=== PATIENT | male | born 1950 | race Caucasian/White ===

== ENCOUNTER 2024-05-22 15:36 | Emergency (ER) | payer MEDICARE, OTHER ==
[2024-05-22] MEDS: Acetaminophen 500 MG Tab PO ONE (16:01)
[2024-05-22] MEDS: Ketorolac 15 MG/ML SDV IVPUSH ONE (16:01)
[2024-05-22] MEDS: Sodium Chloride 0.9% 1,000 ML IV ONE (16:02)
[2024-05-22 16:12] LABS: BASOPHILS PERCENT AUTO 0.1 % (0.2-1.2); HEMATOCRIT 36.5 % (40.0-52.0); HEMOGLOBIN 13.4 g/dL (14.0-18.0); IMMATURE GRAN ABSOLUTE AUTO 0.03 x10^3/uL (0.00-0.07); LYMPHOCYTES ABSOLUTE AUTO 0.4 x10^3/uL (1.0-4.8); LYMPHOCYTES PERCENT AUTO 3.8 % (25.0-50.0); MEAN CORPUSCULAR HEMOGLOBIN 34.8 pg (26.0-32.0); MEAN CORPUSCULAR HGB CONC 36.7 g/dL (32.0-36.0); MEAN CORPUSCULAR VOLUME 94.8 fL (78.0-93.0); MONOCYTES ABSOLUTE AUTO 0.3 x10^3/uL (0.0-0.8); NEUTROPHILS ABSOLUTE AUTO 10.1 x10^3/uL (1.8-7.7); PLATELET COUNT,PLT 157 x10^3/uL (130-400); RED BLOOD CELL COUNT 3.85 x10^6/uL (4.5-6.0); WHITE BLOOD CELL COUNT,WBC 10.8 x10^3/uL (4.0-10.0)
[2024-05-22 16:18] LABS: NEUTROPHILS PERCENT AUTO 92.8 % (50.0-80.0)
[2024-05-22 16:27] LABS: A/G RATIO 1.15; ALANINE AMINOTRANSFERASE,ALT 25 U/L (16-63); ALBUMIN 3.8 g/dL (3.4-5.0); ALKALINE PHOSPHATASE 76 U/L (46-116); ANION GAP 14.5 mmol/L (5-15); ASPARTATE AMNIOTRANSFERASE,AST 14 U/L (15-37); BILIRUBIN TOTAL 0.7 mg/dL (0.2-1.0); BLOOD UREA NITROGEN,BUN 17 mg/dL (7-18); CALCIUM 9.2 mg/dL (8.5-10.1); CARBON DIOXIDE,CO2 26 mmol/L (21-32); CHLORIDE,CL 101 mmol/L (98-107); CREATININE 1.1 mg/dL (0.70-1.30); ESTIMATED GFR 71 mL/min (>=60); GLUCOSE RANDOM 145 mg/dL (70-99); POTASSIUM,K 3.5 mmol/L (3.5-5.1); PROTEIN TOTAL,TP 7.1 g/dL (6.4-8.2); SODIUM,NA 138 mmol/L (136-145)
[2024-05-22 16:56] LABS: CORONAVIRUS COVID-19 NAA NEGATIVE (NEGATIVE); INFLUENZA A NAA NEGATIVE (NEGATIVE); INFLUENZA B NAA NEGATIVE (NEGATIVE); RESPIRATORY SYNCYTIAL VIR NAA NEGATIVE (NEGATIVE)
[2024-05-22] MEDS: Piperacillin/Tazobactam 4.5 GM in Sodium Chloride 0.9% 100 ML IV ONE (17:08)
[2024-05-22 18:17] LABS: APPEARANCE,URINE CLOUDY (CLEAR); BILIRUBIN,URINE NEGATIVE (NEGATIVE); COLOR,URINE YELLOW (YELLOW); GLUCOSE,URINE NEGATIVE (NEGATIVE); KETONES,URINE NEGATIVE (NEGATIVE); LEUKOCYTE ESTERASE,URINE MODERATE (NEGATIVE); NITRITE,URINE NEGATIVE (NEGATIVE); OCCULT BLOOD,URINE TRACE-INTACT (NEGATIVE); PROTEIN,URINE TRACE mg/dL (NEGATIVE); UROBILINOGEN,URINE 0.2 EU/dL (0.2)
[2024-05-22 18:22] LABS: BACTERIA,URINE OCCASIONAL /HPF (NOT SEEN); MUCUS,URINE MODERATE /LPF (NOT SEEN); SQUAMOUS EPITHELIAL CELLS,UR NOT SEEN /HPF (NOT SEEN); WBC,URINE 40-50 /HPF (NOT SEEN)
== END 2024-05-22 19:19 | disposition home or self-care (01) ==
LOC: VM.ED 15:36
DX: N39.0 Urinary tract infection, site not specified (principal)
CPT/HCPCS: 0241U; 36415; 71046; 80053; 81001; 83605; 85025; 87040; 87086; 94760; 96361; 96365; 96375; 99284; A9270; J1885; J2543; J3490; J7030